=== PATIENT | female | born 1960 | race Caucasian/White ===

== ENCOUNTER 2017-10-10 08:47 | Inpatient (IN) | payer OTHER ==
[2017-10-10] MEDS ORDERED: ASPIRIN 81 MG TABLET, CHEWABLE PO ONE (09:27)
--- NOTE | 2017-10-10 10:04 | EKG REPORT ---
SEVERITY:- ABNORMAL ECG - ATRIAL FIBRILLATION ANTERIOR INFARCT, AGE INDETERMINATE : Confirmed by: Carolina Paez 10-Oct-2017 10:03:46
[2017-10-10] MEDS ORDERED: NITROGLYCERIN 0.4 MG/TAB 25 TAB/BOTTLE SL PRN (10:11)
--- NOTE | 2017-10-10 10:16 | ER Document Report ---
ED Cardiac - General Chief Complaint: Chest Pain Stated Complaint: CHEST PAIN, SHORTNESS OF BREATH Time Seen by Provider: 10/10/17 09:57 Notes: The patient is a 57-year-old female, past medical history A. fib, GERD, hypertension, presents after 3 hours of left upper chest pressure that was worsening as a progressed earlier today. The pain started at rest and she felt diaphoretic and slightly lightheaded. She said the pressure has improved, but is still present. Her sotalol dose was increased last week by her oil and gas recruiter, Dr. Paez. She did not take her sotalol, diltiazem or metoprolol this morning. She has a history of possible DVTs and used to be on Coumadin and Eliquis, but she would have increased epistaxis and increased vaginal bleeding, so her doses have had to be decreased. Patient denies back pain, numbness, tingling, nausea, vomiting, abdominal pain, fevers, cough, headache or syncope. TRAVEL OUTSIDE OF THE [place] IN LAST 30 DAYS: No - Related Data Allergies/Adverse Reactions: atropine Allergy (Verified 10/10/17 10:38) clarithromycin [From Biaxin] Allergy (Verified 10/10/17 10:38) erythromycin base Allergy (Verified 10/10/17 10:38) tape Allergy (Uncoded 10/10/17 10:38) Past Medical History - General Information source: Patient - Social History Smoking Status: Unknown if Ever Smoked Family History: Reviewed & Not Pertinent Review of Systems - Review of Systems Notes: REVIEW OF SYSTEMS: CONSTITUTIONAL: -fevers, -chills EENT: -eye pain, -difficulty swallowing, -nasal congestion CARDIOVASCULAR: +chest pain, -syncope. RESPIRATORY: -cough, +SOB GASTROINTESTINAL: -abdominal pain, -nausea, -vomiting, -diarrhea GENITOURINARY: -dysuria, -hematuria MUSCULOSKELETAL: -back pain, -neck pain SKIN: -rash or skin lesions. HEMATOLOGIC: -easy bruising or bleeding. LYMPHATIC: -swollen, enlarged glands. NEUROLOGICAL: -altered mental status or loss of consciousness, -headache, - neurologic symptoms PSYCHIATRIC: -anxiety, -depression. ALL OTHER SYSTEMS REVIEWED AND NEGATIVE. Physical Exam - Vital signs Vitals: Temp Pulse Resp BP Pulse Ox 97.7 F 103 H 24 H 116/86 H 94 10/10/17 09:03 10/10/17 09:03 10/10/17 09:03 10/10/17 09:03 10/10/17 09:03 - Notes Notes: PHYSICAL EXAMINATION: GENERAL: Well-appearing, well-nourished and in no acute distress. HEAD: Atraumatic, normocephalic. EYES: Pupils equal round and reactive to light, extraocular movements intact, sclera anicteric, conjunctiva are normal. ENT: nares patent, oropharynx clear without exudates. Moist mucous membranes. NECK: Normal range of motion, supple without lymphadenopathy LUNGS: Breath sounds clear to auscultation bilaterally and equal. No wheezes rales or rhonchi. HEART: Irregularly irregular rhythm, tachycardia ABDOMEN: Soft, nontender, normoactive bowel sounds. No guarding, no rebound. No masses appreciated. EXTREMITIES: Bilateral swollen legs, strong distal pulses NEUROLOGICAL: Cranial nerves grossly intact. Normal speech, normal gait. Normal sensory and motor exams. PSYCH: Normal mood, normal affect. SKIN: Warm, Dry, normal turgor, no rashes or lesions noted. Course - Re-evaluation Re-evalutation: Patient arrives with slight chest pain that improved after a sublingual nitro. She is found to be in A. fib with RVR, but she did not take her morning rate controlling medications. She took them while she was in the emergency room and her heart rate improved to the 80's. Her HEART score is 6. There is also suspicion for PE, but unable to obtain V/Q CTA or LE US due to weight restrictions. 10/10/17 11:[address] Paez (her oil and gas recruiter) and he is recommending transferring to facility with capability for bariatric stress test or labview programmer due to her weight and risk factors. He states that [facility] does not have the capabilities to fully evaluate the patient. He is also recommending heparin or Lovenox with bridging to Coumadin due to high suspicion for PE and a normal INR. Called [facility] and they are on divert for a few days. Spoke to Saba Alvarenga, [facility], [place], [facility], [place], [facility] and their CT scanners and labview programmer tables are unable to support her weight. Called back to Dr. Paez and he will see patient when she is admitted to [facility]. 10/10/17 13:25 Spoke to her PMD, Dr. Husain, and will admit patient to IMCU for further evaluation and treatment of her suspected PEs and further monitoring of her chest pain. - Vital Signs Vital signs: Temp Pulse Resp BP Pulse Ox 97.7 F 103 H 15 102/65 86 L 10/10/17 09:03 10/10/17 09:03 10/10/17 12:31 10/10/17 12:31 10/10/17 12:31 - Laboratory Result Diagrams: 10/10/17 10:23 10/10/17 10:23 Laboratory results interpreted by me: 10/10/17 10/10/17 10:23 10:23 MCH 26.3 L MCHC 31.6 L RDW 18.7 H Creatine Kinase < 20 L - Diagnostic Test Radiology reviewed: Image reviewed, Reports reviewed - EKG Interpretation by Me EKG shows normal: Mico, Intervals, QRS Complexes, ST-T Waves Rate: Tachycardia Rhythm: A.Fib Critical Care Note - Critical Care Note Total time excluding time spent on procedures (mins): 35 Discharge - Discharge Clinical Impression: Shortness of breath, Suspected PE, Atrial fibrillation with RVR Chest pain Qualifiers: Chest pain type: unspecified Qualified Code(s): R07.9 - Chest pain, unspecified Condition: Stable Disposition: ADMITTED INPATIENT Admitting Provider: Elina Unit Admitted: [facility] Referrals: EVIE HUSAIN MD [Primary Care Provider] - Follow up as needed
[2017-10-10 10:43] LABS: ABSOLUTE BASOPHILS # (AUTO) 0.1 10^3/uL (0.0-0.2); ABSOLUTE EOSINOPHILS # (AUTO) 0.2 10^3/uL (0.0-0.6); ABSOLUTE LYMPHOCYTES (AUTO) 1.5 10^3/uL (0.5-4.7); ABSOLUTE MONOCYTES (AUTO) 0.7 10^3/uL (0.1-1.4); BASOPHILS % (AUTO) 0.6 % (0-2); EOSINOPHILS % (AUTO) 1.8 % (0-6); HEMATOCRIT 39.3 % (36.0-47.0); HEMOGLOBIN 12.4 g/dL (12.0-15.5); LYMPHOCYTES % (AUTO) 15.4 % (13-45); MEAN CORPUSCULAR HEMOGLOBIN 26.3 pg (27.0-33.4); MEAN CORPUSCULAR HGB CONC 31.6 g/dL (32.0-36.0); MEAN CORPUSCULAR VOLUME 83 fl (80-97); MONOCYTES % (AUTO) 7.5 % (3-13); PLATELET COUNT 323 10^3/uL (150-450); RED BLOOD COUNT 4.73 10^6/uL (3.72-5.28); RED CELL DISTRIBUTION WIDTH 18.7 % (11.5-14.0); SEGMENTED NEUTROPHILS % (AUTO) 74.7 % (42-78); TOTAL CELLS COUNTED % (AUTO) 100 %; WHITE BLOOD COUNT 9.4 10^3/uL (4.0-10.5)
[2017-10-10 10:46] LABS: INTERNATIONAL RATION (INR) 1.02; PARTIAL THROMBOPLASTIN TIME 30.3 SEC (23.5-35.8); PROTHROMBIN TIME 14.1 SEC (11.4-15.4)
--- NOTE | 2017-10-10 10:54 | RADIOLOGY REPORT (SQ) ---
EXAM DESCRIPTION: CHEST SINGLE VIEW COMPLETED DATE/TIME: 10/10/2017 10:45 am REASON FOR STUDY: chest pain sob COMPARISON: April 2009 EXAM PARAMETERS: NUMBER OF VIEWS: One view. TECHNIQUE: Single frontal radiographic view of the chest acquired. RADIATION DOSE: NA LIMITATIONS: None. FINDINGS: LUNGS AND PLEURA: No opacities, masses or pneumothorax. No pleural effusion. Minimal line ar density is identified in the left mid lung field laterally which could represent subsegmental atel ectasis or scarring. MEDIASTINUM AND HILAR STRUCTURES: No masses. Contour normal. HEART AND VASCULAR STRUCTURES: Cardiac silhouette is at the upper limits of normal in size. A tortuo us thoracic aorta is seen. BONES: No acute findings. HARDWARE: None in the chest. OTHER: No other significant finding. IMPRESSION: NO ACUTE RADIOGRAPHIC FINDING IN THE CHEST. TECHNICAL DOCUMENTATION: JOB ID: [id number] [employer]- All Rights Reserved
[2017-10-10 10:59] LABS: ALANINE AMINOTRANSFERASE 25 U/L (9-52); ALBUMIN 3.6 g/dL (3.5-5.0); ALKALINE PHOSPHATASE 93 U/L (38-126); ANION GAP 10 (5-19); ASPARTATE AMINO TRANSFERASE 18 U/L (14-36); BLOOD UREA NITROGEN 12 mg/dL (7-20); CALCIUM 9.3 mg/dL (8.4-10.2); CARBON DIOXIDE 29 mmol/L (22-30); CHLORIDE 102 mmol/L (98-107); GLUCOSE 104 mg/dL (75-110); POTASSIUM 4.4 mmol/L (3.6-5.0); SODIUM 140.6 mmol/L (137-145); TOTAL PROTEIN 7.6 g/dL (6.3-8.2)
[2017-10-10 11:04] LABS: BILIRUBIN,TOTAL 0.7 mg/dL (0.2-1.3)
[2017-10-10 11:07] LABS: BILIRUBIN,DIRECT 0.4 mg/dL (0.0-0.4); CREATINE KINASE < 20 U/L (30-135)
[2017-10-10 11:13] LABS: CREATINE KINASE MB < 0.22 ng/mL (<4.55); TROPONIN I < 0.012 ng/mL
[2017-10-10] MEDS ORDERED: HEPARIN SOD (PORCINE) 1,000 UNIT/ML 10 ML VIAL IV ONE ×2 (12:23→12:24)
[2017-10-10] MEDS: HEPARIN SODIUM,PORCINE/D5W 25,000 UNIT/250 ML RTUINJ IV PRN (13:07)
[2017-10-10] MEDS ORDERED: ZOLPIDEM TARTRATE 5 MG TABLET PO PRN (16:01)
[2017-10-10] MEDS ORDERED: ACETAMINOPHEN 325 MG TABLET PO PRN (16:01)
[2017-10-10] MEDS ORDERED: IPRATROPIUM/ALBUTEROL 0.5-2.5 MG/3 ML AMPUL NEB PRN (16:01)
[2017-10-10] MEDS ORDERED: DOCUSATE SODIUM 100 MG CAPSULE PO PRN (16:01)
--- NOTE | 2017-10-10 16:39 | PDOC H&P ---
History of Present Illness Admission Date/PCP: 10/10/17 13:48 EVIE HUSAIN Patient complains of: Chest pain with dyspnea since 6.30 am today. History of Present Illness: JAZIEL CHEN is a 57 year old female with hx of HTN/Hyperlipidemia/A-fib/ Asthma /GERD/Gout/Vitamin D def/Lumbago/Pre Diabetes/Morbid obesity, who has had suspected leg DVT, that could not be confirmed due to weight limitation. She could be on full anticoagulation with either Warfarin or Eliquis due to severe epistaxis and vaginal bleeding. She was in her baseline till around 6.30 am, when she started having left sided chest pain at rest associated with dyspnea, diaphoresis and lightheadedness. She was brought to ER and chest pain resolved with NTG. The ER could do CTA confirm pulmonary weight restrictions since her weight is 630 lbs and maximum capacity for the CTA machine is 550lbs. All attempts to get her transferred to other centers failed due to either they have same weight restriction or that they are on diversion especially [facility] is said to be on diversion. Social History Smoking Status: Unknown if Ever Smoked Family History Family History: Reviewed & Not Pertinent Parental Family History Reviewed: Yes Children Family History Reviewed: Yes Sibling(s) Family History Reviewed.: Yes Medication/Allergy Home Medications: Albuterol Sulfate [Proair HFA Inhalation Aerosol 8.5 gm MDI] 2 puff IH Q4HP PRN 10/10/17 Allopurinol [Zyloprim 300 mg Tablet] 300 mg PO DAILY 10/10/17 Cholecalciferol (Vitamin D3) [Vitamin D3] 2,000 unit PO DAILY 10/10/17 Cholecalciferol (Vitamin D3) [Vitamin D3] 50,000 unit PO NIÑO@1000 10/10/17 Colesevelam HCl [Welchol 625 mg Tablet] 625 mg PO BID 10/10/17 Diltiazem HCl [Cardizem] 180 mg PO Q12 10/10/17 Furosemide [Lasix] 10 mg PO DAILY 10/10/17 Metoprolol Succinate [Toprol Xl 25 mg Tab.sr] 12.5 mg PO Q12 10/10/17 Pravastatin Sodium [Pravachol] 20 mg PO QHS 10/10/17 Ranitidine HCl [Zantac 150 mg Tablet] 150 mg PO BID 02/09/18 Sotalol HCl [Sotalol] 120 mg PO Q12 10/10/17 Warfarin Sodium [Coumadin 1 mg Tablet] 0.5 mg PO SUTUTHSA@1000 10/10/17 Warfarin Sodium [Coumadin 1 mg Tablet] 1 mg PO MOWEFR@1000 10/10/17 Allergies/Adverse Reactions: atropine Allergy (Verified 10/10/17 10:38) clarithromycin [From Biaxin] Allergy (Verified 10/10/17 10:38) erythromycin base Allergy (Verified 10/10/17 10:38) tape Allergy (Uncoded 10/10/17 10:38) Review of Systems All systems: as per PMH Constitutional: PRESENT: weight gain Eyes: PRESENT: as per HPI Ears: PRESENT: as per HPI Nose, Mouth, and Throat: PRESENT: as per HPI Cardiovascular: PRESENT: chest pain, dyspnea on exertion, edema, palpitations Respiratory: PRESENT: dyspnea Gastrointestinal: PRESENT: as per HPI Musculoskeletal: PRESENT: as per HPI, back pain Integumentary: PRESENT: diaphoresis Neurological: PRESENT: as per HPI Psychiatric: PRESENT: as per HPI Endocrine: PRESENT: as per HPI Hematologic/Lymphatic: PRESENT: as per HPI Physical Exam Vital Signs: Temp Pulse Resp BP Pulse Ox 97.7 F 103 H 15 102/65 96 10/10/17 09:03 10/10/17 09:03 10/10/17 12:31 10/10/17 12:31 10/10/17 12:30 General appearance: PRESENT: cooperative, mild distress, morbidly obese Head exam: PRESENT: atraumatic, normocephalic Eye exam: PRESENT: EOMI, PERRLA Ear exam: PRESENT: normal external ear exam, TM's normal bilaterally Mouth exam: PRESENT: neck supple, tongue midline Neck exam: PRESENT: full ROM Respiratory exam: PRESENT: clear to auscultation louie, symmetrical Cardiovascular exam: PRESENT: irregular rhythm, +S1, +S2 Pulses: PRESENT: +1 pedal pulses bilateral GI/Abdominal exam: PRESENT: normal bowel sounds, soft Rectal exam: PRESENT: deferred Extremities exam: PRESENT: full ROM Musculoskeletal exam: PRESENT: full ROM Neurological exam: PRESENT: alert, awake, oriented to person, oriented to place , oriented to time Psychiatric exam: PRESENT: normal mood Results Laboratory Results: 10/10/17 14:05 Troponin I < 0.012 Impressions: Chest X-Ray 10/10/17 09:27 IMPRESSION: NO ACUTE RADIOGRAPHIC FINDING IN THE CHEST. Assessment & Plan - Diagnosis (1) Suspected pulmonary embolism Is this a current diagnosis for this admission?: Yes Plan: Ct with unfractionated heparin as per [facility] protocol; Monitor PTT as per protocol ; ct with warfarin and monitor INR as per protocol. Ct with Oxygen by N/C 2 L/ min to keep saturation >92 %. (2) Atrial fibrillation with RVR Is this a current diagnosis for this admission?: Yes Plan: Ct with Heparin and Warfarin and monitor PTT and INR/PT as per protocol. Ct with Sotalol 80 mg BID po; Metoprolol succinate 12.5 mg BID po; Diltiazem 180 mg BID po. F/u Dr Paez. (3) Chest pain Qualifiers: Chest pain type: unspecified Qualified Code(s): R07.9 - Chest pain, unspecified Is this a current diagnosis for this admission?: Yes Plan: Ct with oxygen by N/C 2 L/min to keep saturation >92%; serial EKG/cardiac enzymes to rule out DE. F/u front line supervisor, Dr Paez. (4) Hypertension Qualifiers: Hypertension type: essential hypertension Qualified Code(s): I10 - Essential (primary) hypertension Is this a current diagnosis for this admission?: Yes Plan: Ct with Diltiazem 180 mg BID po; Toprol 12.5 mg BID po; 2 g sodium diet. (5) Asthma Qualifiers: Asthma severity: mild Asthma persistence: persistent Is this a current diagnosis for this admission?: Yes Plan: Ct with Duonebs q6h prn; Ct with oxygen byy N/C 2 L/min to keep saturation >92%. (6) GERD (gastroesophageal reflux disease) Qualifiers: Esophagitis presence: esophagitis presence not specified Qualified Code(s) : K21.9 - Gastro-esophageal reflux disease without esophagitis Is this a current diagnosis for this admission?: Yes Plan: ct with Ranitine 150 mg BI PO; Prevacid 30 mg qd po. (7) Gout Qualifiers: Gout site: unspecified site Presence of tophus: without tophus Is this a current diagnosis for this admission?: Yes Plan: Ct with Allopurinol 300 mg qd po. (8) Hyperlipidemia Qualifiers: Hyperlipidemia type: mixed hyperlipidemia Qualified Code(s): E78.2 - Mixed hyperlipidemia Is this a current diagnosis for this admission?: Yes Plan: Ct with Pravastatin 20 mg qhs po; Welchol 1875 mg qd po; 200 mg cholesterol diet. (9) Vitamin D deficiency Is this a current diagnosis for this admission?: Yes Plan: Ct with Vitamin D [id number] weekly po. (10) Morbid obesity with BMI of 70 and over, adult Is this a current diagnosis for this admission?: Yes Plan: Dietitian consult. Ct with diet and exercise counseling. (11) DVT prophylaxis Is this a current diagnosis for this admission?: Yes Plan: Ct with SCD; ct with Heparin. - Time Time Spent: 30 to 50 Minutes Medications reviewed and adjusted accordingly: Yes Anticipated discharge: Home Within: within 72 hours - Inpatient Certification Medical Necessity: Failure to Improve With Outpatient Therapy, Significant Comorbidiites Make Outpatient Treatment Too Risky, Need Close Monitoring Due to Risk of Patient Decompensation, Need For Continuous Telemetry Monitoring, Risk of Complication if Not Cared For in Hospital, Risk of Diagnosis Which Will Require Inpatient Eval/Care/Monitoring
[2017-10-10 20:11] LABS: INTERNATIONAL RATION (INR) 1.02; PROTHROMBIN TIME 14.1 SEC (11.4-15.4)
[2017-10-10 20:13] LABS: PARTIAL THROMBOPLASTIN TIME 59.9 SEC (23.5-35.8)
--- NOTE | 2017-10-10 20:50 | PDOC CONSULTATION ---
Consultation Consult Date: 10/10/17 Attending physician:: EVIE HUSAIN Consult reason:: Shortness of breath and chest pain History of Present Illness Admission Date/PCP: 10/10/17 13:48 EVIE HUSAIN Patient complains of: Chest pain and shortness of breath History of Present Illness: JAZIEL CHEN is a 57 year old female with hx of HTN/Hyperlipidemia/A-fib/ Asthma /GERD/Gout/Vitamin D def/Lumbago/Pre Diabetes/Morbid obesity, who has had suspected leg DVT, that could not be confirmed due to weight limitation. She could not be on full anticoagulation with either Warfarin or Eliquis due to severe epistaxis and vaginal bleeding. She was in her baseline till around 6.30 am, when she started having left sided chest pain at rest associated with dyspnea, diaphoresis and lightheadedness. She was brought to ER and chest pain resolved with NTG. The ER could not do CTA confirm pulmonary weight restrictions since her weight is 630 lbs and maximum capacity for the CTA machine is 550lbs. All attempts to get her transferred to other centers failed due to either they have same weight restriction or that they are on diversion especially [facility] [place] is said to be on diversion. This history was reviewed and confirmed. Patient tells me that she had rapid palpitations and shortness of breath and chest discomfort at the same time. She also felt dizzy and had noted some numbness around her lips. Patient specifically denied any panic symptoms are any history of panic attacks in the past. 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 She has seen me in the office for intermittent atrial fibrillation which has now become persistent and chronic. She was referred for ablation to [place] but did not really wanted in the ablation therapy. Patient also does not want any gastric bypass at obesity surgery in the past. Past Medical History Cardiac Medical History: Reports: Atrial Fibrillation Social History Information Source: Patient Smoking Status: Unknown if Ever Smoked - Advance Directive Resuscitation Status: Full Code Surrogate healthcare decision maker:: Patient's daughter is the surrogate decision-maker Family History Family History: Reviewed & Not Pertinent Parental Family History Reviewed: Yes Children Family History Reviewed: Yes Sibling(s) Family History Reviewed.: Yes Medication/Allergy Home Medications: Albuterol Sulfate [Proair HFA Inhalation Aerosol 8.5 gm MDI] 2 puff IH Q4HP PRN 10/10/17 Allopurinol [Zyloprim 300 mg Tablet] 300 mg PO DAILY 10/10/17 Cholecalciferol (Vitamin D3) [Vitamin D3] 2,000 unit PO DAILY 10/10/17 Cholecalciferol (Vitamin D3) [Vitamin D3] 50,000 unit PO NIÑO@1000 10/10/17 Colesevelam HCl [Welchol 625 mg Tablet] 625 mg PO BID 10/10/17 Diltiazem HCl [Cardizem] 180 mg PO Q12 10/10/17 Furosemide [Lasix] 10 mg PO DAILY 10/10/17 Metoprolol Succinate [Toprol Xl 25 mg Tab.sr] 12.5 mg PO Q12 10/10/17 Pravastatin Sodium [Pravachol] 20 mg PO QHS 10/10/17 Ranitidine HCl [Zantac 150 mg Tablet] 150 mg PO BID 10/10/17 Sotalol HCl [Sotalol] 120 mg PO Q12 10/10/17 Warfarin Sodium [Coumadin 1 mg Tablet] 0.5 mg PO SUTUTHSA@1000 10/10/17 Warfarin Sodium [Coumadin 1 mg Tablet] 1 mg PO MOWEFR@1000 10/10/17 Allergies/Adverse Reactions: atropine Allergy (Verified 10/10/17 10:38) clarithromycin [From Biaxin] Allergy (Verified 10/10/17 10:38) erythromycin base Allergy (Verified 10/10/17 10:38) tape Allergy (Uncoded 10/10/17 10:38) Review of Systems Review of Systems: Please see history of present illness and past medical history as wall. Constitutional: No fever or chills reported. Head : No recent chronic headaches, recent head injury. Eyes: No recent eye pain, diplopia, redness, discharge, acute visual changes. Ears: No recent chronic ear pain, acute hearing loss, ear discharge. Oral cavity: No recent ulcerations, bleeding, oral cavity discomfort. Neck: No recent acute neck pain reported. Hematologic: No recent easy bruising or bleeding or hematologic malignancy reported. Lymphatic: No recent lymphatic malignancy, chronic lymphadenopathy reported yet Cardiovascular system review: See history of present illness. Respiratory system review: No recent chronic cough, hemoptysis, blood clots in the lungs reported. Shortness of breath on exertion Gastrointestinal system review: Negative for any recent acute or chronic abdominal pain, hematemesis, melena, recent change in bowel habits. Genitourinary system review: No recent acute or chronic hematuria, flank pain, UTI etc. reported. Skin system review: Negative for any recent abnormal bruising, no rash, no pruritus reported. Neurologic: No prior history of strokes, mini strokes, seizure disorder. Psychologic: No history of major psychosis or major depression reported. Musculoskeletal: Minor aches and pains reported. No acute joint swelling reported. Endocrine: No recent polyuria, polydipsia, recent heat or cold intolerance. Physical Exam Vital Signs: Temp Pulse Resp BP Pulse Ox 97.7 F 103 H 25 H 126/77 H 93 10/10/17 09:03 10/10/17 09:03 10/10/17 20:17 10/10/17 20:17 10/10/17 20:17 Exam: GENERAL: well-nourished and in no acute distress. Alert and oriented x3 HEAD: Atraumatic, normocephalic. EYES: Pupils equal round and reactive to light, extraocular movements intact, sclera anicteric, conjunctiva are normal. ENT: TMs normal, nares patent, oropharynx clear without exudates. Moist mucous membranes. No oral ulcerations or bleeding gums noted NECK: supple without lymphadenopathy. Trachea is central. No cervical or axillary lymphadenopathy noted. Carotids are 2+, JVD WNL LUNGS: Respiration seems nonlabored, no significant accessory muscle action noted. Breath sounds clear to auscultation bilaterally and equal noted. No wheezes rales or rhonchi noted. No significant dullness noted on percussion. CHEST: Palpation of the chest wall shows no significant chest wall tenderness. No other significant abnormalities noted. HEART: [place] [employer], No PSH, 1/6 KEMI aortic area, 1/6 ojeda systolic murmur mitral area, no rubs, no gallops. ABDOMEN: Soft, no significant tenderness appreciated, normoactive bowel sounds. No guarding, no rebound. No rigidity noted . No masses appreciated. EXTREMITIES: Pedal pulses are 1-2+, no calf tenderness noted. No clubbing or cyanosis. 1+ pedal edema noted. Some chronic lymphedema also noted NEUROLOGICAL: Focused neurological exam showed no significant neurologic deficit. Normal speech, no focal weakness appreciated. PSYCH: Normal mood, normal affect. Judgment and insight within normal limits. SKIN: No significant ecchymosis, rash, ulcerations or signs of pruritus noted. MUSCULOSKELETAL EXAM: No significant joint swelling noted. Results Laboratory Results: 10/10/17 14:05 Troponin I < 0.012 EKG Comments: Shows atrial fibrillation with rapid ventricular response and minor nonspecific T-wave changes Impressions: Chest X-Ray 10/10/17 09:27 IMPRESSION: NO ACUTE RADIOGRAPHIC FINDING IN THE CHEST. Assessment & Plan - Diagnosis (1) Atrial fibrillation with RVR Is this a current diagnosis for this admission?: Yes (2) Suspected pulmonary embolism Is this a current diagnosis for this admission?: Yes (3) Chest pain Qualifiers: Chest pain type: unspecified Qualified Code(s): R07.9 - Chest pain, unspecified Is this a current diagnosis for this admission?: Yes (4) GERD (gastroesophageal reflux disease) Qualifiers: Esophagitis presence: esophagitis presence not specified Qualified Code(s) : K21.9 - Gastro-esophageal reflux disease without esophagitis Is this a current diagnosis for this admission?: Yes (5) Hyperlipidemia Qualifiers: Hyperlipidemia type: mixed hyperlipidemia Qualified Code(s): E78.2 - Mixed hyperlipidemia Is this a current diagnosis for this admission?: Yes (6) Hypertension Qualifiers: Hypertension type: essential hypertension Qualified Code(s): I10 - Essential (primary) hypertension Is this a current diagnosis for this admission?: Yes (7) Shortness of breath Is this a current diagnosis for this admission?: Yes (8) Asthma Qualifiers: Asthma severity: mild Asthma persistence: persistent Is this a current diagnosis for this admission?: Yes (9) Morbid obesity with BMI of 70 and over, adult Is this a current diagnosis for this admission?: Yes - Notes Notes: Patient has multiple comorbid diagnosis but currently she is suspected to have pulmonary embolism. Patient has high risk for thromboembolic phenomenon due to morbid obesity. Agree with heparin drip. Subsequently can be switched over to chronic Coumadin therapy. Patient may benefit from CERTIFIED ALCOHOL DRUG COUNSELOR consultation to look into vaginal bleed situation. As regards atrial fibrillation, for rate control agree with beta-vicky therapy in addition to Cardizem therapy. At this point recommend stopping sotalol and starting patient on Multaq for both rate control and conversion to sinus rhythm. Patient is benefit eventually from ablation therapy. At this point continue current management plans. Will continue to follow patient. We will discuss with Dr. Husain. - Time Time Spent: 30 to 50 Minutes - CODE STATUS was discussed, patient remains full code. Surrogate decision-maker unchanged. Multiple medical problems were addressed. More than 50% of the time spent coordinating care, discussing management plans with involved caregivers. Management plans discussed with involved personnels. Medical decision making was of high complexity, patient' s has multiple comorbidities.
[2017-10-10] MEDS ORDERED: DILTIAZEM HCL 120 MG CAP.SR.24H PO SCH (22:00)
[2017-10-10] MEDS ORDERED: METOPROLOL SUCCINATE 25 MG TAB.SR.24H PO SCH (22:00)
[2017-10-10] MEDS ORDERED: SOTALOL HCL 80 MG TABLET PO SCH (22:00)
[2017-10-10] MEDS ORDERED: DILTIAZEM HCL 180 MG CAPSULE.CR PO ONE (23:00)
[2017-10-11] MEDS: HEPARIN SODIUM,PORCINE/D5W 25,000 UNIT/250 ML RTUINJ IV PRN ×3 (01:59→23:11)
[2017-10-11] MEDS: HEPARIN SOD (PORCINE) 1,000 UNIT/ML 10 ML VIAL IV PRN ×2 (02:17→19:35)
[2017-10-11 05:28] LABS: ABSOLUTE BASOPHILS # (AUTO) 0.1 10^3/uL (0.0-0.2); ABSOLUTE EOSINOPHILS # (AUTO) 0.2 10^3/uL (0.0-0.6); ABSOLUTE LYMPHOCYTES (AUTO) 2.4 10^3/uL (0.5-4.7); ABSOLUTE MONOCYTES (AUTO) 0.6 10^3/uL (0.1-1.4); ABSOLUTE NEUT (AUTO) 5.1 10^3/uL (1.7-8.2); BASOPHILS % (AUTO) 0.6 % (0-2); EOSINOPHILS % (AUTO) 2.9 % (0-6); HEMATOCRIT 35.9 % (36.0-47.0); HEMOGLOBIN 11.5 g/dL (12.0-15.5); LYMPHOCYTES % (AUTO) 28.8 % (13-45); MEAN CORPUSCULAR HEMOGLOBIN 26.4 pg (27.0-33.4); MEAN CORPUSCULAR HGB CONC 31.9 g/dL (32.0-36.0); MEAN CORPUSCULAR VOLUME 83 fl (80-97); MONOCYTES % (AUTO) 7.4 % (3-13); PLATELET COUNT 253 10^3/uL (150-450); RED BLOOD COUNT 4.33 10^6/uL (3.72-5.28); RED CELL DISTRIBUTION WIDTH 18.9 % (11.5-14.0); SEGMENTED NEUTROPHILS % (AUTO) 60.3 % (42-78); TOTAL CELLS COUNTED % (AUTO) 100 %; WHITE BLOOD COUNT 8.4 10^3/uL (4.0-10.5)
[2017-10-11 06:05] LABS: ALANINE AMINOTRANSFERASE 24 U/L (9-52); ALKALINE PHOSPHATASE 74 U/L (38-126); ANION GAP 9 (5-19); ASPARTATE AMINO TRANSFERASE 14 U/L (14-36); BILIRUBIN,DIRECT 0.2 mg/dL (0.0-0.4); BILIRUBIN,TOTAL 0.4 mg/dL (0.2-1.3); BLOOD UREA NITROGEN 12 mg/dL (7-20); CALCIUM 8.8 mg/dL (8.4-10.2); CARBON DIOXIDE 28 mmol/L (22-30); CHLORIDE 106 mmol/L (98-107); CHOLESTEROL 116.61 mg/dL (0-200); GLUCOSE 130 mg/dL (75-110); POTASSIUM 4.2 mmol/L (3.6-5.0); SODIUM 142.5 mmol/L (137-145); TOTAL PROTEIN 6.2 g/dL (6.3-8.2); TRIGLYCERIDES 131 mg/dL (<150)
[2017-10-11] MEDS: LANSOPRAZOLE 30 MG TAB.RAP.DR PO SCH (06:33)
[2017-10-11 06:46] LABS: DIRECT LDL 72 mg/dL (<100)
[2017-10-11] MEDS ORDERED: INFLUENZA ADLT QUAD (36MOS+) 2017-18 VAC 0.5 ML SYR IM PRN (06:57)
--- NOTE | 2017-10-11 10:21 | EKG REPORT ---
SEVERITY:- ABNORMAL ECG - ATRIAL FIB, A-RATE 333 PROBABLE INFERIOR INFARCT, AGE INDETERMINATE ABNRM R PROG, CONSIDER ASMI OR LEAD PLACEMENT LATERAL LEADS ARE ALSO INVOLVED BORDERLINE PROLONGED QT INTERVAL ANT T INVERSION CONSIDER ISCHEMIA : Confirmed by: Carolina Paez 11-Oct-2017 10:21:12
--- NOTE | 2017-10-11 11:10 | PDOC PROGRESS REPORT ---
Subjective Progress Note for:: 10/11/17 Subjective:: Patient seems to be doing better with gradual improvement. Pt is denying any chest arm or neck discomfort. Patient denying any PND, orthopnea. Patient denied any sustained palpitations, dizziness, syncope, near syncope. Patient denying any fever chills. Patient denying any other significant discomfort. Patient is maintaining atrial fibrillation which now seems persistent. Review of systems: Rest review of systems negative. Medications: Medications have been reviewed. Reason For Visit: SUSPECTED PULMONARY EMBOLISM/LEFT LEG DVT/A-FIB Physical Exam Vital Signs: Temp Pulse Resp BP Pulse Ox 97.7 F 118 H 18 128/82 H 98 10/11/17 07:57 10/11/17 07:57 10/11/17 07:57 10/11/17 07:57 10/11/17 07:57 Intake & Output 10/10/17 10/11/17 10/12/17 06:59 06:59 06:59 Intake Total 1361 Output Total 400 Balance 961 Weight 230.7 kg Exam: GENERAL: well-nourished and in no acute distress. Alert and oriented x3 HEAD: Atraumatic, normocephalic. EYES: Pupils equal round and reactive to light, extraocular movements intact, sclera anicteric, conjunctiva are normal. ENT: TMs normal, nares patent, oropharynx clear without exudates. Moist mucous membranes. No oral ulcerations or bleeding gums noted NECK: supple without lymphadenopathy. Trachea is central. No cervical or axillary lymphadenopathy noted. Carotids are 2+, JVD WNL LUNGS: Respiration seems nonlabored, no significant accessory muscle action noted. Breath sounds clear to auscultation bilaterally and equal noted. No wheezes rales or rhonchi noted. No significant dullness noted on percussion. CHEST: Palpation of the chest wall shows no significant chest wall tenderness. No other significant abnormalities noted. 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 ABDOMEN: Soft, no significant tenderness appreciated, normoactive bowel sounds. No guarding, no rebound. No rigidity noted . No masses appreciated. EXTREMITIES: Pedal pulses are 1-2+, no calf tenderness noted. No clubbing or cyanosis.1+ pedal edema noted NEUROLOGICAL: Focused neurological exam showed no significant neurologic deficit. Normal speech, no focal weakness appreciated. PSYCH: Normal mood, normal affect. Judgment and insight within normal limits. SKIN: No significant ecchymosis, rash, ulcerations or signs of pruritus noted. MUSCULOSKELETAL EXAM: No significant joint swelling noted. Results Laboratory Results: 10/11/17 04:19 10/11/17 04:19 10/11/17 10/11/17 10/11/17 04:19 04:19 04:19 WBC 8.4 RBC 4.33 Hgb 11.5 L Hct 35.9 L MCV 83 MCH 26.4 L MCHC 31.9 L RDW 18.9 H Plt Count 253 Seg Neutrophils % 60.3 Lymphocytes % 28.8 Monocytes % 7.4 Eosinophils % 2.9 Basophils % 0.6 Absolute Neutrophils 5.1 Absolute Lymphocytes 2.4 Absolute Monocytes 0.6 Absolute Eosinophils 0.2 Absolute Basophils 0.1 Sodium 142.5 Potassium 4.2 Chloride 106 Carbon Dioxide 28 Anion Gap 9 BUN 12 Creatinine 0.66 Est GFR ( Amer) > 60 Est GFR (Non-Af Amer) > 60 Glucose 130 H Calcium 8.8 Total Bilirubin 0.4 AST 14 ALT 24 Alkaline Phosphatase 74 Total Protein 6.2 L Albumin 3.0 L Triglycerides 131 Cholesterol 116.61 LDL Cholesterol Direct 72 VLDL Cholesterol 26.0 HDL Cholesterol 29 L TSH 1.06 10/10/17 14:05 Troponin I < 0.012 EKG Comments: Telemetry strip shows atrial fibrillation with somewhat of a rapid ventricular response. Impressions: Chest X-Ray 10/10/17 09:27 IMPRESSION: NO ACUTE RADIOGRAPHIC FINDING IN THE CHEST. Assessment & Plan - Diagnosis (1) Atrial fibrillation with RVR Is this a current diagnosis for this admission?: Yes (2) Suspected pulmonary embolism Is this a current diagnosis for this admission?: Yes (3) Chest pain Qualifiers: Chest pain type: unspecified Qualified Code(s): R07.9 - Chest pain, unspecified Is this a current diagnosis for this admission?: Yes (4) GERD (gastroesophageal reflux disease) Qualifiers: Esophagitis presence: esophagitis presence not specified Qualified Code(s) : K21.9 - Gastro-esophageal reflux disease without esophagitis Is this a current diagnosis for this admission?: Yes (5) Hyperlipidemia Qualifiers: Hyperlipidemia type: mixed hyperlipidemia Qualified Code(s): E78.2 - Mixed hyperlipidemia Is this a current diagnosis for this admission?: Yes (6) Hypertension Qualifiers: Hypertension type: essential hypertension Qualified Code(s): I10 - Essential (primary) hypertension Is this a current diagnosis for this admission?: Yes (7) Shortness of breath Is this a current diagnosis for this admission?: Yes (8) Asthma Qualifiers: Asthma severity: mild Asthma persistence: persistent Is this a current diagnosis for this admission?: Yes (9) Morbid obesity with BMI of 70 and over, adult Is this a current diagnosis for this admission?: Yes - Notes Notes: Patient has had no recurrence of chest pains. Currently resting comfortably. As regards atrial fibrillation with rapid ventricular response, patient has been on sotalol 120 mg p.o. daily for quite some time and it has not been effective. I think the best option would be to stop the sotalol and use multaq but there is some concern if patient will be able to afford that as an outpatient. I have opted to stop sotalol in case and center administrator might like to use an alternative medication. Will opt on increasing metoprolol succinate for control of heart rate in addition to Cardizem. Eventually patient would benefit from ablation therapy, aggressive weight loss etc. Concerned about pulmonary embolism. There is high probability by clinical reasons but this could not be ruled in or ruled out. Patient to need chronic anticoagulation for atrial fibrillation anyway. 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 If Coumadin is used, INR goal would be between 2 and 3. Patient could also be discharged on any of the newer anticoagulants such as Eliquis. Patient would also benefit from a [employer] consultation as one of the reason she is reluctant to take anticoagulants is because of recurrent vaginal bleed. Her other listed problems stable at this point. Will continue to follow patient. - Time Time with patient: Greater than 35 minutes - CODE STATUS was discussed, patient remains full code. Surrogate decision-maker unchanged. Multiple medical problems were addressed. More than 50% of the time spent coordinating care, discussing management plans with involved caregivers. Management plans discussed with involved personnels. Medical decision making was of moderate to high complexity, patient's has multiple comorbidities. Medications reviewed and adjusted accordingly: Yes
[2017-10-11] MEDS: DILTIAZEM HCL 180 MG CAPSULE.CR PO SCH ×2 (11:20→21:30)
[2017-10-11] MEDS ORDERED: METOPROLOL SUCCINATE 25 MG TAB.SR.24H PO ONE (11:30)
--- NOTE | 2017-10-11 15:58 | PDOC PROGRESS REPORT ---
Subjective Progress Note for:: 10/11/17 Subjective:: 57-year-old female with past medical history of Hypertension Hyperlipidemia Atrial fibrillation Asthma GERD Gout Vitamin D deficiency Chronic back pain Prediabetes Morbid obesity weighs more than 600 pounds She had a suspected lower extremity DVT per her primary care physician Dr. Antoine who admitted her on October 10. According to his documentation she could not be on warfarin or Eliquis due to severe epistaxis and vaginal bleeding. She was reportedly at her baseline until 6:30 AM on for benign when she started having left-sided chest pain associated with dyspnea diaphoresis and lightheadedness. In the emergency room her chest pain was relieved with nitroglycerin. ET angiogram could not be done due to her weight. All attempts to get her transferred to other centers field due to weight restriction or lack of availability of beds. She was started on unfractionated heparin per protocol. Patient is on sotalol metoprolol and Cardizem for her atrial fibrillation. Cardiology consultation has also been requested. Reason For Visit: SUSPECTED PULMONARY EMBOLISM/LEFT LEG DVT/A-FIB Physical Exam Vital Signs: Temp Pulse Resp BP Pulse Ox 97.7 F 118 H 18 128/82 H 98 10/11/17 07:57 10/11/17 07:57 10/11/17 07:57 10/11/17 07:57 10/11/17 07:57 Intake & Output 10/10/17 10/11/17 10/12/17 06:59 06:59 06:59 Intake Total 1361 Output Total 400 Balance 961 Weight 230.7 kg Additional comments: [place] obese female sitting in bed not in acute distress Lungs: Clear to auscultation bilaterally normal respiratory effort Cardiac: S1-S2 regular no murmurs heard Abdomen: Soft obese no focal tenderness Skin: Warm and dry Psychiatric awake and alert normal mood and affect Neurologic no facial droop no tremors speech is clear and fluent Results Laboratory Results: 10/11/17 04:19 10/11/17 04:19 10/11/17 10/11/17 10/11/17 04:19 04:19 04:19 WBC 8.4 RBC 4.33 Hgb 11.5 L Hct 35.9 L MCV 83 MCH 26.4 L MCHC 31.9 L RDW 18.9 H Plt Count 253 Seg Neutrophils % 60.3 Lymphocytes % 28.8 Monocytes % 7.4 Eosinophils % 2.9 Basophils % 0.6 Absolute Neutrophils 5.1 Absolute Lymphocytes 2.4 Absolute Monocytes 0.6 Absolute Eosinophils 0.2 Absolute Basophils 0.1 Sodium 142.5 Potassium 4.2 Chloride 106 Carbon Dioxide 28 Anion Gap 9 BUN 12 Creatinine 0.66 Est GFR ( Amer) > 60 Est GFR (Non-Af Amer) > 60 Glucose 130 H Calcium 8.8 Total Bilirubin 0.4 AST 14 ALT 24 Alkaline Phosphatase 74 Total Protein 6.2 L Albumin 3.0 L Triglycerides 131 Cholesterol 116.61 LDL Cholesterol Direct 72 VLDL Cholesterol 26.0 HDL Cholesterol 29 L TSH 1.06 10/10/17 14:05 Troponin I < 0.012 Impressions: Chest X-Ray 10/10/17 09:27 IMPRESSION: NO ACUTE RADIOGRAPHIC FINDING IN THE CHEST. Assessment & Plan - Diagnosis (1) Shortness of breath Is this a current diagnosis for this admission?: Yes Plan: See below. (2) Suspected pulmonary embolism Is this a current diagnosis for this admission?: Yes Plan: On heparin gtt (3) Chest pain Qualifiers: Chest pain type: unspecified Qualified Code(s): R07.9 - Chest pain, unspecified Is this a current diagnosis for this admission?: Yes Plan: Most likely due to pulmonary embolism. (4) Asthma Qualifiers: Asthma severity: mild Asthma persistence: persistent Is this a current diagnosis for this admission?: Yes Plan: Continue inhalers (5) Atrial fibrillation with RVR Is this a current diagnosis for this admission?: Yes Plan: On sotalol Cardizem and metoprolol. (6) GERD (gastroesophageal reflux disease) Qualifiers: Esophagitis presence: esophagitis presence not specified Qualified Code(s) : K21.9 - Gastro-esophageal reflux disease without esophagitis Is this a current diagnosis for this admission?: Yes Plan: On ranitidine and Prevacid (7) Gout Qualifiers: Gout site: unspecified site Presence of tophus: without tophus Is this a current diagnosis for this admission?: Yes Plan: Continue allopurinol (8) Hyperlipidemia Qualifiers: Hyperlipidemia type: mixed hyperlipidemia Qualified Code(s): E78.2 - Mixed hyperlipidemia Is this a current diagnosis for this admission?: Yes Plan: On statin and WelChol (9) Hypertension Qualifiers: Hypertension type: essential hypertension Qualified Code(s): I10 - Essential (primary) hypertension Is this a current diagnosis for this admission?: Yes (10) Morbid obesity with BMI of 70 and over, adult Is this a current diagnosis for this admission?: Yes (11) Vitamin D deficiency Is this a current diagnosis for this admission?: Yes Plan: Weekly vitamin D supplementation
[2017-10-11] MEDS ORDERED: METOPROLOL TARTRATE PF/INJ 5 MG/5 ML SDV IV PRN (16:25)
[2017-10-11] MEDS: METOPROLOL SUCCINATE 25 MG TAB.SR.24H PO SCH (21:31)
[2017-10-12] MEDS: LANSOPRAZOLE 30 MG TAB.RAP.DR PO SCH (06:06)
[2017-10-12 06:40] LABS: ABSOLUTE EOSINOPHILS # (AUTO) 0.2 10^3/uL (0.0-0.6); ABSOLUTE LYMPHOCYTES (AUTO) 2.1 10^3/uL (0.5-4.7); ABSOLUTE MONOCYTES (AUTO) 0.7 10^3/uL (0.1-1.4); ABSOLUTE NEUT (AUTO) 5.1 10^3/uL (1.7-8.2); BASOPHILS % (AUTO) 0.1 % (0-2); EOSINOPHILS % (AUTO) 2.4 % (0-6); HEMATOCRIT 35.4 % (36.0-47.0); HEMOGLOBIN 11.4 g/dL (12.0-15.5); LYMPHOCYTES % (AUTO) 25.7 % (13-45); MEAN CORPUSCULAR HEMOGLOBIN 26.5 pg (27.0-33.4); MEAN CORPUSCULAR HGB CONC 32.1 g/dL (32.0-36.0); MEAN CORPUSCULAR VOLUME 83 fl (80-97); MONOCYTES % (AUTO) 8.7 % (3-13); PLATELET COUNT 258 10^3/uL (150-450); RED BLOOD COUNT 4.28 10^6/uL (3.72-5.28); RED CELL DISTRIBUTION WIDTH 18.9 % (11.5-14.0); SEGMENTED NEUTROPHILS % (AUTO) 63.1 % (42-78); TOTAL CELLS COUNTED % (AUTO) 100 %; WHITE BLOOD COUNT 8.1 10^3/uL (4.0-10.5)
[2017-10-12 07:04] LABS: ALANINE AMINOTRANSFERASE 28 U/L (9-52); ALBUMIN 2.9 g/dL (3.5-5.0); ALKALINE PHOSPHATASE 76 U/L (38-126); ANION GAP 9 (5-19); ASPARTATE AMINO TRANSFERASE 16 U/L (14-36); BILIRUBIN,DIRECT 0.4 mg/dL (0.0-0.4); BILIRUBIN,TOTAL 0.7 mg/dL (0.2-1.3); BLOOD UREA NITROGEN 12 mg/dL (7-20); CALCIUM 8.9 mg/dL (8.4-10.2); CARBON DIOXIDE 26 mmol/L (22-30); CHLORIDE 105 mmol/L (98-107); GLUCOSE 107 mg/dL (75-110); MAGNESIUM 1.8 mg/dL (1.6-2.3); POTASSIUM 4.2 mmol/L (3.6-5.0); SODIUM 140.2 mmol/L (137-145); TOTAL PROTEIN 6.4 g/dL (6.3-8.2)
--- NOTE | 2017-10-12 09:11 | EKG REPORT ---
SEVERITY:- ABNORMAL ECG - ATRIAL FIBRILLATION, V-RATE 77-90 ANTERIOR INFARCT, AGE INDETERMINATE : Confirmed by: Carolina Paez 12-Oct-2017 09:10:44
[2017-10-12] MEDS: DILTIAZEM HCL 180 MG CAPSULE.CR PO SCH (10:07)
[2017-10-12] MEDS: METOPROLOL SUCCINATE 25 MG TAB.SR.24H PO SCH ×2 (10:08→22:03)
[2017-10-12] MEDS: HEPARIN SODIUM,PORCINE/D5W 25,000 UNIT/250 ML RTUINJ IV PRN ×2 (10:09→20:27)
--- NOTE | 2017-10-12 10:53 | PDOC PROGRESS REPORT ---
Subjective Progress Note for:: 10/12/17 Subjective:: 57-year-old female with past medical history of Hypertension Hyperlipidemia Atrial fibrillation Asthma GERD Gout Vitamin D deficiency Chronic back pain Prediabetes Morbid obesity weighs more than 600 pounds She had a suspected lower extremity DVT per her primary care physician Dr. Antoine who admitted her on October 10. According to his documentation she could not be on warfarin or Eliquis due to severe epistaxis and vaginal bleeding. She was reportedly at her baseline until 6:30 AM on for benign when she started having left-sided chest pain associated with dyspnea, diaphoresis and lightheadedness. In the emergency room her chest pain was relieved with nitroglycerin. ET angiogram could not be done due to her weight. All attempts to get her transferred to other centers field due to weight restriction or lack of availability of beds. She was started on unfractionated heparin per protocol. Patient is on sotalol metoprolol and Cardizem for her atrial fibrillation. Cardiology consultation was requested and Dr. Paez is making adjustments to her Atrial fibrillation medications. No complaints today. Is eager to go home hopefully on Friday. Reason For Visit: SUSPECTED PULMONARY EMBOLISM/LEFT LEG DVT/A-FIB Physical Exam Vital Signs: Temp Pulse Resp BP Pulse Ox 98.0 F 81 18 142/92 H 94 10/12/17 08:25 10/12/17 08:25 10/12/17 08:25 10/12/17 08:25 10/12/17 08:25 Intake & Output 10/11/17 10/12/17 10/13/17 06:59 06:59 06:59 Intake Total 1361 2904 Output Total 400 1 Balance 961 2903 Weight 230.7 kg 230.7 kg Additional comments: Morbidly obese female sitting in bed not in acute distress Lungs: Clear to auscultation bilaterally normal respiratory effort Cardiac: S1-S2 regular, no murmurs heard Abdomen: Soft obese no focal tenderness Skin: Warm and dry Psychiatric awake and alert normal mood and affect Neurologic: no facial droop no tremors, speech is clear and fluent Results Laboratory Results: 10/12/17 06:20 10/12/17 06:20 10/12/17 10/12/17 06:20 06:20 WBC 8.1 RBC 4.28 Hgb 11.4 L Hct 35.4 L MCV 83 MCH 26.5 L MCHC 32.1 RDW 18.9 H Plt Count 258 Seg Neutrophils % 63.1 Lymphocytes % 25.7 Monocytes % 8.7 Eosinophils % 2.4 Basophils % 0.1 Absolute Neutrophils 5.1 Absolute Lymphocytes 2.1 Absolute Monocytes 0.7 Absolute Eosinophils 0.2 Absolute Basophils 0.0 Sodium 140.2 Potassium 4.2 Chloride 105 Carbon Dioxide 26 Anion Gap 9 BUN 12 Creatinine 0.62 Est GFR ( Amer) > 60 Est GFR (Non-Af Amer) > 60 Glucose 107 Calcium 8.9 Phosphorus 4.0 Magnesium 1.8 Total Bilirubin 0.7 AST 16 ALT 28 Alkaline Phosphatase 76 Total Protein 6.4 Albumin 2.9 L 10/10/17 14:05 Troponin I < 0.012 Impressions: Chest X-Ray 10/10/17 09:27 IMPRESSION: NO ACUTE RADIOGRAPHIC FINDING IN THE CHEST. Assessment & Plan - Diagnosis (1) Shortness of breath Is this a current diagnosis for this admission?: Yes Plan: See below. (2) Suspected pulmonary embolism Is this a current diagnosis for this admission?: Yes Plan: On heparin gtt (3) Chest pain Qualifiers: Chest pain type: unspecified Qualified Code(s): R07.9 - Chest pain, unspecified Is this a current diagnosis for this admission?: Yes Plan: Most likely due to pulmonary embolism. (4) Asthma Qualifiers: Asthma severity: mild Asthma persistence: persistent Is this a current diagnosis for this admission?: Yes Plan: Continue inhalers (5) Atrial fibrillation with RVR Is this a current diagnosis for this admission?: Yes Plan: On sotalol Cardizem and metoprolol. (6) GERD (gastroesophageal reflux disease) Qualifiers: Esophagitis presence: esophagitis presence not specified Qualified Code(s) : K21.9 - Gastro-esophageal reflux disease without esophagitis Is this a current diagnosis for this admission?: Yes Plan: On ranitidine and Prevacid (7) Gout Qualifiers: Gout site: unspecified site Presence of tophus: without tophus Is this a current diagnosis for this admission?: Yes Plan: Continue allopurinol (8) Hyperlipidemia Qualifiers: Hyperlipidemia type: mixed hyperlipidemia Qualified Code(s): E78.2 - Mixed hyperlipidemia Is this a current diagnosis for this admission?: Yes Plan: On statin and WelChol (9) Hypertension Qualifiers: Hypertension type: essential hypertension Qualified Code(s): I10 - Essential (primary) hypertension Is this a current diagnosis for this admission?: Yes Plan: Continue current meds (10) Morbid obesity with BMI of 70 and over, adult Is this a current diagnosis for this admission?: Yes (11) Vitamin D deficiency Is this a current diagnosis for this admission?: Yes Plan: Weekly vitamin D supplementation - Time Time Spent with patient: 25-34 minutes
--- NOTE | 2017-10-12 11:30 | PDOC PROGRESS REPORT ---
Subjective Progress Note for:: 10/12/17 Subjective:: Patient still noted to have intermittent high heart rate reading. EKG is showing some symmetrical T-wave inversion. 2D echo is pending. Recommend getting it done prior to discharge. Patient unwilling to go up on metoprolol succinate, she claims this is giving her cough. Have therefore increased Cardizem CD 240 mg p.o. 2 times a day. Sotalol was discontinued as this was noted to be no longer effective and because of proarrhythmia concern, therefore discontinued. Patient does not want to go on any other antiarrhythmics because of pocketbook issues. Patient seems to be doing better with gradual improvement. Pt is denying any chest arm or neck discomfort. Patient denying any PND, orthopnea. Patient denied any sustained palpitations, dizziness, syncope, near syncope. Patient denying any fever chills. Patient denying any other significant discomfort. Patient is maintaining atrial fibrillation which now seems persistent. Review of systems: Rest review of systems negative. Medications: Medications have been reviewed. Reason For Visit: SUSPECTED PULMONARY EMBOLISM/LEFT LEG DVT/A-FIB Physical Exam Vital Signs: Temp Pulse Resp BP Pulse Ox 98.0 F 81 18 142/92 H 94 10/12/17 08:25 10/12/17 08:25 10/12/17 08:25 10/12/17 08:25 10/12/17 08:25 Intake & Output 10/11/17 10/12/17 10/13/17 06:59 06:59 06:59 Intake Total 1361 2904 Output Total 400 1 Balance 961 2903 Weight 230.7 kg 230.7 kg Exam: GENERAL: well-nourished and in no acute distress. Alert and oriented x3 HEAD: Atraumatic, normocephalic. EYES: Pupils equal round and reactive to light, extraocular movements intact, sclera anicteric, conjunctiva are normal. ENT: TMs normal, nares patent, oropharynx clear without exudates. Moist mucous membranes. No oral ulcerations or bleeding gums noted NECK: supple without lymphadenopathy. Trachea is central. No cervical or axillary lymphadenopathy noted. Carotids are 2+, JVD WNL LUNGS: Respiration seems nonlabored, no significant accessory muscle action noted. Breath sounds clear to auscultation bilaterally and equal noted. No wheezes rales or rhonchi noted. No significant dullness noted on percussion. CHEST: Palpation of the chest wall shows no significant chest wall tenderness. No other significant abnormalities noted. 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 ABDOMEN: Soft, no significant tenderness appreciated, normoactive bowel sounds. No guarding, no rebound. No rigidity noted . No masses appreciated. EXTREMITIES: Pedal pulses are 1-2+, no calf tenderness noted. No clubbing or cyanosis. 1+ pedal edema noted NEUROLOGICAL: Focused neurological exam showed no significant neurologic deficit. Normal speech, no focal weakness appreciated. PSYCH: Normal mood, normal affect. Judgment and insight within normal limits. SKIN: No significant ecchymosis, rash, ulcerations or signs of pruritus noted. MUSCULOSKELETAL EXAM: No significant joint swelling noted. Results Laboratory Results: 10/12/17 06:20 10/12/17 06:20 10/12/17 10/12/17 06:20 06:20 WBC 8.1 RBC 4.28 Hgb 11.4 L Hct 35.4 L MCV 83 MCH 26.5 L MCHC 32.1 RDW 18.9 H Plt Count 258 Seg Neutrophils % 63.1 Lymphocytes % 25.7 Monocytes % 8.7 Eosinophils % 2.4 Basophils % 0.1 Absolute Neutrophils 5.1 Absolute Lymphocytes 2.1 Absolute Monocytes 0.7 Absolute Eosinophils 0.2 Absolute Basophils 0.0 Sodium 140.2 Potassium 4.2 Chloride 105 Carbon Dioxide 26 Anion Gap 9 BUN 12 Creatinine 0.62 Est GFR ( Amer) > 60 Est GFR (Non-Af Amer) > 60 Glucose 107 Calcium 8.9 Phosphorus 4.0 Magnesium 1.8 Total Bilirubin 0.7 AST 16 ALT 28 Alkaline Phosphatase 76 Total Protein 6.4 Albumin 2.9 L 10/10/17 14:05 Troponin I < 0.012 EKG Comments: Shows atrial fibrillation with intermittent rapid ventricular response. Twelve- lead EKG shows symmetrical T-wave inversion anterior precordial lead somewhat concerning for ischemia versus right heart strain. Impressions: Chest X-Ray 10/10/17 09:27 IMPRESSION: NO ACUTE RADIOGRAPHIC FINDING IN THE CHEST. Assessment & Plan - Diagnosis (1) Atrial fibrillation with RVR Is this a current diagnosis for this admission?: Yes (2) Suspected pulmonary embolism Is this a current diagnosis for this admission?: Yes (3) Chest pain Qualifiers: Chest pain type: unspecified Qualified Code(s): R07.9 - Chest pain, unspecified Is this a current diagnosis for this admission?: Yes (4) GERD (gastroesophageal reflux disease) Qualifiers: Esophagitis presence: esophagitis presence not specified Qualified Code(s) : K21.9 - Gastro-esophageal reflux disease without esophagitis Is this a current diagnosis for this admission?: Yes (5) Hyperlipidemia Qualifiers: Hyperlipidemia type: mixed hyperlipidemia Qualified Code(s): E78.2 - Mixed hyperlipidemia Is this a current diagnosis for this admission?: Yes (6) Hypertension Qualifiers: Hypertension type: essential hypertension Qualified Code(s): I10 - Essential (primary) hypertension Is this a current diagnosis for this admission?: Yes (7) Shortness of breath Is this a current diagnosis for this admission?: Yes (8) Asthma Qualifiers: Asthma severity: mild Asthma persistence: persistent Is this a current diagnosis for this admission?: Yes (9) Morbid obesity with BMI of 70 and over, adult Is this a current diagnosis for this admission?: Yes - Notes Notes: Atrial fibrillation: Patient still noted to have intermittent high heart rate reading. EKG is showing some symmetrical T-wave inversion. 2D echo is pending. Recommend getting it done prior to discharge. Patient unwilling to go up on metoprolol succinate, she claims this is giving her cough. Have therefore increased Cardizem CD 240 mg p.o. 2 times a day. Sotalol was discontinued as this was noted to be no longer effective and because of proarrhythmia concern, therefore discontinued. Patient does not want to go on any other antiarrhythmics because of pocketbook issues. Chest pain: Resolved there has been no recurrences. Patient has multiple other problems which are noted to be stable. - Time Time with patient: 15-25 minutes - CODE STATUS was discussed, patient remains full code. Surrogate decision-maker unchanged. Multiple medical problems were addressed. More than 50% of the time spent coordinating care, discussing management plans with involved caregivers. Management plans discussed with involved personnels. Medical decision making was of moderate to high complexity , patient's has multiple comorbidities. Medications reviewed and adjusted accordingly: Yes
[2017-10-12] MEDS ORDERED: FUROSEMIDE 20 MG TABLET PO ONE (12:23)
[2017-10-12] MEDS ORDERED: CETIRIZINE 10 MG TABLET PO SCH (14:00)
[2017-10-12] MEDS: DILTIAZEM HCL 120 MG CAP.SR.24H PO SCH (22:03)
[2017-10-13 05:20] LABS: ABSOLUTE BASOPHILS # (AUTO) 0.1 10^3/uL (0.0-0.2); ABSOLUTE EOSINOPHILS # (AUTO) 0.3 10^3/uL (0.0-0.6); ABSOLUTE LYMPHOCYTES (AUTO) 1.9 10^3/uL (0.5-4.7); ABSOLUTE MONOCYTES (AUTO) 0.6 10^3/uL (0.1-1.4); ABSOLUTE NEUT (AUTO) 4.7 10^3/uL (1.7-8.2); BASOPHILS % (AUTO) 0.8 % (0-2); EOSINOPHILS % (AUTO) 3.5 % (0-6); HEMATOCRIT 34.1 % (36.0-47.0); HEMOGLOBIN 10.9 g/dL (12.0-15.5); LYMPHOCYTES % (AUTO) 25.1 % (13-45); MEAN CORPUSCULAR HEMOGLOBIN 26.5 pg (27.0-33.4); MEAN CORPUSCULAR VOLUME 83 fl (80-97); MONOCYTES % (AUTO) 8.1 % (3-13); PLATELET COUNT 217 10^3/uL (150-450); RED BLOOD COUNT 4.11 10^6/uL (3.72-5.28); RED CELL DISTRIBUTION WIDTH 18.8 % (11.5-14.0); SEGMENTED NEUTROPHILS % (AUTO) 62.5 % (42-78); TOTAL CELLS COUNTED % (AUTO) 100 %; WHITE BLOOD COUNT 7.5 10^3/uL (4.0-10.5)
[2017-10-13] MEDS: HEPARIN SOD (PORCINE) 1,000 UNIT/ML 10 ML VIAL IV PRN (06:02)
[2017-10-13] MEDS: LANSOPRAZOLE 30 MG TAB.RAP.DR PO SCH (06:11)
[2017-10-13] MEDS: HEPARIN SODIUM,PORCINE/D5W 25,000 UNIT/250 ML RTUINJ IV PRN (06:11)
[2017-10-13 07:30] LABS: ALANINE AMINOTRANSFERASE 26 U/L (9-52); ALBUMIN 3.3 g/dL (3.5-5.0); ALKALINE PHOSPHATASE 85 U/L (38-126); ANION GAP 9 (5-19); ASPARTATE AMINO TRANSFERASE 29 U/L (14-36); BILIRUBIN,DIRECT 0.5 mg/dL (0.0-0.4); BLOOD UREA NITROGEN 13 mg/dL (7-20); CALCIUM 9.1 mg/dL (8.4-10.2); CARBON DIOXIDE 27 mmol/L (22-30); CHLORIDE 104 mmol/L (98-107); GLUCOSE 114 mg/dL (75-110); POTASSIUM 4.4 mmol/L (3.6-5.0); SODIUM 139.5 mmol/L (137-145); TOTAL PROTEIN 7.2 g/dL (6.3-8.2)
[2017-10-13] MEDS: DILTIAZEM HCL 120 MG CAP.SR.24H PO SCH (09:54)
[2017-10-13] MEDS: METOPROLOL SUCCINATE 25 MG TAB.SR.24H PO SCH (09:54)
--- NOTE | 2017-10-13 13:05 | XCELERA REPORT ---
[address] [address] Transthoracic Echocardiogram Report Name: JAZIEL CHEN Age: 57 yrs Gender: Female : 1960 Patient Status: Inpatient Patient Location: [address] [place], [place] [id number] Study Date: 10/13/2017 11:20 AM Height: 70 in Weight: 611 lb BSA: 3.4 m2 Procedure: A complete two-dimensional transthoracic echocardiogram was performed (2D, M-mode, spectral and color flow Doppler). The study was technically difficult with many images being suboptimal in quality. Reason For Study: Atrial fibrillation with rapid ventricular respons Ordering Physician: CAROLINA DAMON Performed By: Spring Cordoba Interpretation Summary The study was technically difficult with many images being suboptimal in quality. The left ventricular ejection fraction is preserved. Consider additional methods to assess LVEF such as MUGA scan, CTA heart, cardiac MRI, CLAUDIO, etc. if clinically indicated. Regional wall motion abnormalities cannot be excluded due to limited visualization. The left ventricle is grossly normal size. There is mild concentric left ventricular hypertrophy. The right ventricular systolic function is mildly reduced. The right ventricle is moderately dilated. The left atrium is mildly dilated. The right atrium is moderately dilated. There is a trace amount of mitral regurgitation There is no mitral valve stenosis. No aortic regurgitation is present. There is no aortic valve stenosis There is a trace to mild amount of tricuspid regurgitation There is mild pulmonary hypertension by echo Right ventricular systolic pressure is estimated to be elevated at 30- 40mmHg. The aortic root is not well visualized but is probably normal size. The inferior vena cava was not well visualized There is no pericardial effusion. MMode/2D Measurements & Calculations RVDd: 4.1 cm LVIDd: 4.9 cmFS: 32.8 % Ao root diam: 3.4 cm IVSd: 1.2 cm LVIDs: 3.3 cmEDV(Teich): 115.4 ml LVPWd: 1.2 cmESV(Teich): 44.9 ml Ao root area: 9.2 cm2 EF(Teich): 61.1 % LA dimension: 4.0 cm LVOT diam: 2.4 cm LVOT area: 4.4 cm2 Doppler Measurements & Calculations MV E max steffany: MV P1/2t max steffany: Ao V2 max: LV V1 max P.7 cm/sec 102.2 cm/sec 152.0 cm/sec 4.4 mmHg MV A max steffany: MV P1/2t: 33.1 msec Ao max PG: LV V1 max: 53.8 cm/sec MVA(P1/2t): 6.6 cm2 9.2 mmHg 104.6 cm/sec MV E/A: 1.9 MV dec slope: LISA(V,D): 3.0 cm2 904.1 cm/sec2 PA V2 max: TR max steffany: 103.2 cm/sec 255.8 cm/sec PA max PG: TR max P.2 mmHg 4.3 mmHg Left Ventricle The left ventricle is grossly normal size. There is mild concentric left ventricular hypertrophy. The left ventricular ejection fraction is preserved. Consider additional methods to assess LVEF such as MUGA scan, CTA heart, cardiac MRI, CLAUDIO, etc. if clinically indicated. LV diastolic function could not be adequately assessed due to atrial fibrilation. Regional wall motion abnormalities cannot be excluded due to limited visualization. Right Ventricle The right ventricle is moderately dilated. The right ventricular systolic function is mildly reduced. Atria The right atrium is moderately dilated. The left atrium is mildly dilated. Interarterial septum not well visualized and not well dopplered. Cannot comment on ASD/PFO presence. Mitral Valve The mitral valve is not well visualized. There is no mitral valve stenosis. There is a trace amount of mitral regurgitation. Aortic Valve The aortic valve is not well visualized secondary to technical limitations. There is no aortic valve stenosis. No aortic regurgitation is present. Tricuspid Valve The tricuspid valve is not well visualized, but is grossly normal. There is no tricuspid stenosis. There is a trace to mild amount of tricuspid regurgitation. There is mild pulmonary hypertension by echo. Right ventricular systolic pressure is estimated to be elevated at 30-40mmHg. Pulmonic Valve The pulmonic valve is not well visualized. Great Vessels The aortic root is not well visualized but is probably normal size. The inferior vena cava was not well visualized. Effusions There is no pericardial effusion. : CAROLINA DAMON > Carolina Damon
--- NOTE | 2017-10-13 13:49 | PDOC DISCHARGE SUMMARY ---
General - Admit/Disc Date/PCP Admission Date/Primary Care Provider: 10/10/17 13:48 EVIE HUSAIN Discharge Date: 10/13/17 - Discharge Diagnosis (1) Suspected pulmonary embolism Is this a current diagnosis for this admission?: Yes (2) Atrial fibrillation with RVR Is this a current diagnosis for this admission?: Yes (3) Chest pain Is this a current diagnosis for this admission?: Yes (4) Hypertension Is this a current diagnosis for this admission?: Yes (5) Asthma Is this a current diagnosis for this admission?: Yes (6) GERD (gastroesophageal reflux disease) Is this a current diagnosis for this admission?: Yes (7) Gout Is this a current diagnosis for this admission?: Yes (8) Hyperlipidemia Is this a current diagnosis for this admission?: Yes (9) Vitamin D deficiency Is this a current diagnosis for this admission?: Yes (10) Morbid obesity with BMI of 70 and over, adult Is this a current diagnosis for this admission?: Yes (11) DVT prophylaxis Is this a current diagnosis for this admission?: Yes - Additional Information Resuscitation Status: Full Code Prescriptions: Apixaban [Eliquis 2.5 mg Tablet] 2.5 mg PO BID #60 tablet Home Medications: Albuterol Sulfate [Proair HFA Inhalation Aerosol 8.5 gm MDI] 2 puff IH Q4HP PRN 10/10/17 Allopurinol [Zyloprim 300 mg Tablet] 300 mg PO DAILY 10/10/17 Cholecalciferol (Vitamin D3) [Vitamin D3] 2,000 unit PO DAILY 10/10/17 Cholecalciferol (Vitamin D3) [Vitamin D3] 50,000 unit PO NIÑO@1000 10/10/17 Colesevelam HCl [Welchol 625 mg Tablet] 625 mg PO BID 10/10/17 Furosemide [Lasix] 10 mg PO DAILY 10/10/17 Pravastatin Sodium [Pravachol] 20 mg PO QHS 10/10/17 Ranitidine HCl [Zantac 150 mg Tablet] 150 mg PO BID 10/10/17 Apixaban [Eliquis 2.5 mg Tablet] 2.5 mg PO BID #60 tablet 10/13/17 Diltiazem HCl [Cardizem] 240 mg PO Q12 #60 10/13/17 Metoprolol Succinate [Toprol Xl 25 mg Tab.sr] 25 mg PO Q12 #60 10/13/17 History of Present Illness History of Present Illness: JAZIEL CHEN is a 57 year old female with hx of HTN/Hyperlipidemia/A-fib/ Asthma /GERD/Gout/Vitamin D def/Lumbago/Pre Diabetes/Morbid obesity, who has had suspected leg DVT, that could not be confirmed due to weight limitation. She could be on full anticoagulation with either Warfarin or Eliquis due to severe epistaxis and vaginal bleeding. She was in her baseline till around 6.30 am, when she started having left sided chest pain at rest associated with dyspnea, diaphoresis and lightheadedness. She was brought to ER and chest pain resolved with NTG. The ER could do CTA confirm pulmonary weight restrictions since her weight is 630 lbs and maximum capacity for the CTA machine is 550lbs. All attempts to get her transferred to other centers failed due to either they have same weight restriction or that they are on diversion especially [facility] is said to be on diversion. Hospital Course Hospital Course: 57 year old woman who was admitted for A-fib with rapid ventricular rate/ Possible pulmonary embolism since we could not get CTA chest due to weight restriction. We also ruled out PR due to chest pain o presentation. She was put on unfractionated heparin and warfarin and had ECHO- normal EF and right ventricular sytolic pressure is elevated at 30-40 mm Hg and no regional wall motion abnormalities. Her Sotatol was discontinued by service manager, Dr Paez and Cardizem was increased to 240 mg BID and Toprol increased to 25 mg BID. She is stable now and will be discharged home on her medications with all these changes including Eliquis 2.5 mg BID since she is now on persistent A-fib. She is stable and will discharged home today to follow up with PCP, Dr Husain and service manager, Dr Paez in 1 week. Physical Exam Vital Signs: Temp Pulse Resp BP Pulse Ox 97.6 F 60 18 125/64 99 10/13/17 11:17 10/13/17 11:17 10/13/17 11:17 10/13/17 11:17 10/13/17 11:17 Intake & Output 10/12/17 10/13/17 10/14/17 06:59 06:59 06:59 Intake Total 2904 1624 700 Output Total 1 750 Balance 2903 874 700 Weight 230.7 kg General appearance: PRESENT: no acute distress, cooperative, morbidly obese Head exam: PRESENT: atraumatic, normocephalic Eye exam: PRESENT: EOMI, PERRLA Ear exam: PRESENT: normal external ear exam, TM's normal bilaterally Mouth exam: PRESENT: moist, neck supple, tongue midline Respiratory exam: PRESENT: clear to auscultation louie, symmetrical Cardiovascular exam: PRESENT: irregular rhythm, +S1, +S2 Pulses: PRESENT: +1 pedal pulses bilateral GI/Abdominal exam: PRESENT: normal bowel sounds, soft Rectal exam: PRESENT: deferred Extremities exam: PRESENT: full ROM Musculoskeletal exam: PRESENT: full ROM Neurological exam: PRESENT: alert, awake, oriented to person, oriented to place , oriented to time, CN II-XII grossly intact Psychiatric exam: PRESENT: normal mood Results Laboratory Results: 10/13/17 04:13 10/13/17 06:44 10/13/17 10/13/17 10/13/17 04:13 04:13 06:44 WBC 7.5 RBC 4.11 Hgb 10.9 L Hct 34.1 L MCV 83 MCH 26.5 L MCHC 32.0 RDW 18.8 H Plt Count 217 Seg Neutrophils % 62.5 Lymphocytes % 25.1 Monocytes % 8.1 Eosinophils % 3.5 Basophils % 0.8 Absolute Neutrophils 4.7 Absolute Lymphocytes 1.9 Absolute Monocytes 0.6 Absolute Eosinophils 0.3 Absolute Basophils 0.1 Sodium Cancelled 139.5 Potassium Cancelled 4.4 Chloride Cancelled 104 Carbon Dioxide Cancelled 27 Anion Gap Cancelled 9 BUN Cancelled 13 Creatinine Cancelled 0.67 Est GFR ( Amer) Cancelled > 60 Est GFR (Non-Af Amer) Cancelled > 60 Glucose Cancelled 114 H Calcium Cancelled 9.1 Total Bilirubin Cancelled 1.0 AST Cancelled 29 ALT Cancelled 26 Alkaline Phosphatase Cancelled 85 Total Protein Cancelled 7.2 Albumin Cancelled 3.3 L 10/10/17 14:05 Troponin I < 0.012 Impressions: Chest X-Ray 10/10/17 09:27 IMPRESSION: NO ACUTE RADIOGRAPHIC FINDING IN THE CHEST.
[2017-10-13 14:12] VITALS: BP 125/91
--- NOTE | 2017-10-13 20:18 | PDOC PROGRESS REPORT ---
Subjective Progress Note for:: 10/13/17 Subjective:: Patient still noted to have intermittent high heart rate reading. 2D echo results reviewed. It showed normal LVEF, RV is enlarged with borderline RV systolic dysfunction. Patient unwilling to go up on metoprolol succinate, she claims this is giving her cough. Patient tolerating increased Cardizem CD 240 mg p.o. 2 times a day. Sotalol was discontinued as this was noted to be no longer effective and because of proarrhythmia concern, therefore discontinued. Patient does not want to go on any other antiarrhythmics because of pocketbook issues. Patient seems to be doing better with gradual improvement. Pt is denying any chest arm or neck discomfort. Patient denying any PND, orthopnea. Patient denied any sustained palpitations, dizziness, syncope, near syncope. Patient denying any fever chills. Patient denying any other significant discomfort. Patient is maintaining atrial fibrillation which now seems persistent/chronic. Review of systems: Rest review of systems negative. Medications: Medications have been reviewed. Reason For Visit: SUSPECTED PULMONARY EMBOLISM/LEFT LEG DVT/A-FIB Physical Exam Vital Signs: Temp Pulse Resp BP Pulse Ox 97.6 F 60 18 125/91 H 99 10/13/17 14:09 10/13/17 14:09 10/13/17 14:09 10/13/17 14:09 10/13/17 14:09 Intake & Output 10/12/17 10/13/17 10/14/17 06:59 06:59 06:59 Intake Total 2904 1624 700 Output Total 1 750 Balance 2903 874 700 Weight 230.7 kg Exam: GENERAL: well-nourished and in no acute distress. Alert and oriented x3 HEAD: Atraumatic, normocephalic. EYES: Pupils equal round and reactive to light, extraocular movements intact, sclera anicteric, conjunctiva are normal. ENT: TMs normal, nares patent, oropharynx clear without exudates. Moist mucous membranes. No oral ulcerations or bleeding gums noted NECK: supple without lymphadenopathy. Trachea is central. No cervical or axillary lymphadenopathy noted. Carotids are 2+, JVD WNL LUNGS: Respiration seems nonlabored, no significant accessory muscle action noted. Breath sounds clear to auscultation bilaterally and equal noted. No wheezes rales or rhonchi noted. No significant dullness noted on percussion. CHEST: Palpation of the chest wall shows no significant chest wall tenderness. No other significant abnormalities noted. 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 ABDOMEN: Soft, no significant tenderness appreciated, normoactive bowel sounds. No guarding, no rebound. No rigidity noted . No masses appreciated. EXTREMITIES: Pedal pulses are 1-2+, no calf tenderness noted. No clubbing or cyanosis.trace to 1+ pedal edema noted NEUROLOGICAL: Focused neurological exam showed no significant neurologic deficit. Normal speech, no focal weakness appreciated. PSYCH: Normal mood, normal affect. Judgment and insight within normal limits. SKIN: No significant ecchymosis, rash, ulcerations or signs of pruritus noted. MUSCULOSKELETAL EXAM: No significant joint swelling noted. Results Laboratory Results: 10/13/17 04:13 10/13/17 06:44 10/13/17 10/13/17 10/13/17 04:13 04:13 06:44 WBC 7.5 RBC 4.11 Hgb 10.9 L Hct 34.1 L MCV 83 MCH 26.5 L MCHC 32.0 RDW 18.8 H Plt Count 217 Seg Neutrophils % 62.5 Lymphocytes % 25.1 Monocytes % 8.1 Eosinophils % 3.5 Basophils % 0.8 Absolute Neutrophils 4.7 Absolute Lymphocytes 1.9 Absolute Monocytes 0.6 Absolute Eosinophils 0.3 Absolute Basophils 0.1 Sodium Cancelled 139.5 Potassium Cancelled 4.4 Chloride Cancelled 104 Carbon Dioxide Cancelled 27 Anion Gap Cancelled 9 BUN Cancelled 13 Creatinine Cancelled 0.67 Est GFR ( Amer) Cancelled > 60 Est GFR (Non-Af Amer) Cancelled > 60 Glucose Cancelled 114 H Calcium Cancelled 9.1 Total Bilirubin Cancelled 1.0 AST Cancelled 29 ALT Cancelled 26 Alkaline Phosphatase Cancelled 85 Total Protein Cancelled 7.2 Albumin Cancelled 3.3 L 10/10/17 14:05 Troponin I < 0.012 EKG Comments: Shows atrial fibrillation with intermittent rapid ventricular response. Impressions: Chest X-Ray 10/10/17 09:27 IMPRESSION: NO ACUTE RADIOGRAPHIC FINDING IN THE CHEST. Assessment & Plan - Diagnosis (1) Atrial fibrillation with RVR Is this a current diagnosis for this admission?: Yes (2) Suspected pulmonary embolism Is this a current diagnosis for this admission?: Yes (3) Chest pain Qualifiers: Chest pain type: unspecified Qualified Code(s): R07.9 - Chest pain, unspecified Is this a current diagnosis for this admission?: Yes (4) GERD (gastroesophageal reflux disease) Qualifiers: Esophagitis presence: esophagitis presence not specified Qualified Code(s) : K21.9 - Gastro-esophageal reflux disease without esophagitis Is this a current diagnosis for this admission?: Yes (5) Hyperlipidemia Qualifiers: Hyperlipidemia type: mixed hyperlipidemia Qualified Code(s): E78.2 - Mixed hyperlipidemia Is this a current diagnosis for this admission?: Yes (6) Hypertension Qualifiers: Hypertension type: essential hypertension Qualified Code(s): I10 - Essential (primary) hypertension Is this a current diagnosis for this admission?: Yes (7) Shortness of breath Is this a current diagnosis for this admission?: Yes (8) Asthma Qualifiers: Asthma severity: mild Asthma persistence: persistent Is this a current diagnosis for this admission?: Yes (9) Morbid obesity with BMI of 70 and over, adult Is this a current diagnosis for this admission?: Yes - Notes Notes: Atrial fibrillation: Patient still noted to have intermittent high heart rate reading. 2D echo results reviewed.. Recommend getting it done prior to discharge. Currently on metoprolol succinate 25 p.o. twice daily and Cardizem CD 240 mg p.o. twice daily. Sotalol was discontinued as this was noted to be no longer effective and because of proarrhythmia concern, therefore discontinued. Patient does not want to go on any other antiarrhythmics because of pocketbook issues. Chest pain: Resolved there has been no recurrences. Concerned about pulmonary embolism. 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 He is going to manage anticoagulation. Patient has multiple other problems which are noted to be stable. Patient was informed that she probably need to see an footwear factory worker at tertiary care center for possible ablation versus changing of antiarrhythmic therapy.
== END 2017-10-13 15:06 | disposition home or self-care (01) | DRG 176 ==
LOC: ER 08:47 → EH 13:48 → 3N 21:35
PROVIDERS: ADMIT Internal Medicine; ATTEND Internal Medicine
PROC: 3E0F73Z Introduction of Anti-inflammatory into Respiratory Tract, Via Natural or Artificial Opening (ICD-10-PCS; principal; 2017-10-10)
PROC: 3E0234Z Introduction of Serum, Toxoid and Vaccine into Muscle, Percutaneous Approach (ICD-10-PCS; 2017-10-13)
DX: I26.99 Other pulmonary embolism without acute cor pulmonale (principal); I82.4Z2 Acute embolism and thrombosis of unspecified deep veins of left distal lower extremity; Z68.45 Body mass index [BMI] 70 or greater, adult; I48.1 Persistent atrial fibrillation; I10 Essential (primary) hypertension; K21.9 Gastro-esophageal reflux disease without esophagitis; M10.9 Gout, unspecified; E78.5 Hyperlipidemia, unspecified; E55.9 Vitamin D deficiency, unspecified; E66.01 Morbid (severe) obesity due to excess calories; M54.5 Low back pain; R73.03 Prediabetes; Z23 Encounter for immunization; Z79.899 Other long term (current) drug therapy; Z79.01 Long term (current) use of anticoagulants; Z88.3 Allergy status to other anti-infective agents; Z88.8 Allergy status to other drugs, medicaments and biological substances; E78.2 Mixed hyperlipidemia; J45.30 Mild persistent asthma, uncomplicated
CPT/HCPCS: 36415; 71045; 80053; 80061; 82550; 82553; 83036; 83735; 84100; 84443; 84484; 85025; 85610; 85730; 90686; 93005; 93010; 93306; 96365; 99291; J1644; J3490